=== PATIENT | male | born 1960 | race Caucasian/White ===

== ENCOUNTER 2025-01-29 02:45 | Emergency (ER) | payer SELFPAY ==
[2025-01-29] VITALS (9 sets, daily range): BP systolic 130–157; BP diastolic 79–102; BMI 29.0
--- NOTE | 2025-01-29 03:20 | EDRN ---
Pt lying on stretcher shaking his legs up and down and sometimes side to side. Pt says his last drink of alcohol was about 6 hours ago. Nausea, no vomiting. No hallucinations, cp, sob, abd pain, dizziness, weakness. Pt complains of feeling
anxious. Pt told Dr Tillman he has not had thoughts of killing himself. Pt clarifies the thoughts have crossed his mind but he has no intention of acting upon the thoughts.
--- NOTE | 2025-01-29 03:27 | ED.GENMED ---
History of Present Illness
General
Chief Complaint: Anxiety
Source: patient
Exam Limitations: none
Time Seen by Provider: 01/29/25 03:08
Nursing documentation reviewed up to this point in time: agreed with
History of Present Illness
History of Present Illness:
64-year-old male with history as noted significant for alcohol abuse presents to the emergency room complaining of anxiety�'I think I am withdrawing.' He says that his last drink was yesterday and he thinks maybe about 12 hours ago. He says he
drinks about a bottle of vodka a day. He says that over the past few hours he has had significant anxiety, tremulousness. He says he has a headache. Mild nausea. No vomiting. No abdominal pain. No chest pain. No breathing issues. He denies
any other complaints. He says that he has had occasional suicidal thoughts in the past but denies being actively suicidal and denies homicidal ideation. He denies any drug use.
Past History
Past History
ED Past Medical History: Hypercholesterolemia and Psychiatric (Alcohol abuse, anxiety and depression)
Social History
Tobacco: Smoker
Drug: None
Review of Systems
Review of Systems
All Other Systems: ROS reviewed and negative except as documented in HPI and ROS
Constitutional: Denies fever or chills
EENT: Denies sore throat or runny nose
Respiratory: Denies cough or trouble breathing
Cardiac: Denies chest pain
ABD/GI: Reports nausea; Denies abdominal pain or vomiting
: Denies flank pain
Musculoskeletal: Denies neck pain or back pain
Neurological: Reports headache; Denies dizzy
Psychiatric: Reports anxiety; Denies suicidal or hallucinations
Phy Exam
Physical Exam
Physical Exam:
General: Awake, alert; very restless in the bed and anxious appearing
Head: Normocephalic, atraumatic
Eyes: Conjunctiva normal, EOMI, pupils equal round and reactive to light bilaterally
Throat: Airway intact, slightly dry mucous membranes
Neck: Trachea midline, supple without meningismus
Lungs: Clear to auscultation bilaterally, no wheezing, rales, rhonchi
Heart: Tachycardia with regular rhythm, no murmurs, gallops, or rubs
Abd: Soft, non distended, nontender
Neuro: No gross deficits
Skin: No signs of trauma
Extremities: Warm and well-perfused
Scores
Heart Failure Risk
Heart Failure Risk Score: Not Applicable
Heart Score for Chest Pain Patients
STEMI patient?: Not applicable
Withdrawal Assessment of Alcohol
Withdrawal Assessment Completed?: Yes
Nausea and Vomiting: Mild nausea with no vomiting
Tactile Disturbances: None
Tremor: Not visible, but can be felt fingertip to fingertip
Auditory Disturbances: Not present
Paroxysmal Sweats: No sweat visible
Visual Disturbances: Very mild sensitivity
Anxiety: Moderately anxious, or guarded, so anxiety is inferred
Headache, Fullness in Head: Mild
Agitation: Moderately fidgety and restless
Orientation and clouding of sensorium: Oriented and can do serial additions
Total CIWA Score: 13
Alcohol Withdrawal Medication Recommendation: Equal to MSAS Score 5-7. Lorazepam 1mg IV or PO NOW & re-assess q2hrs
Course
Orders/Labs/Results
Orders:
Orders
01/29/25 03:17
Crisis Consult Urgent
Reason for Consult: pt screeded moderate risk suicide screen
01/29/25 03:23
Drug Screen, Urine [Urine Drug Abuse Screen] Urgent
Lorazepam [Ativan] 1 mg IV NOW STA
Thiamine Injection 100 mg IV NOW STA
01/29/25 03:24
0.9% Sodium Chloride 1000 ml [Nss] 1,000 ml IV BOLUS
01/29/25 03:32
Electrocardiogram (*1) Urgent
Reason for Study: QTc Monitoring
EKG- Treatment ONCE
01/29/25 03:42
Acetaminophen Urgent
Alcohol Urgent
Complete Blood Count/With Diff Urgent
Comprehensive Metabolic Panel Urgent
Lipase Urgent
Salicylate Urgent
01/29/25 04:00
FOLic ACID [Folvite] 1 mg 0.9% Sodium Chloride 50 ml [Nss] 50 ml IV ONCE
Abnormal Lab Results
01/29/25
03:42
WBC 13.6 H 10^3/uL
(4.8-10.8)
RBC 6.36 H 10^6/uL
(4.70-6.10)
Hgb 18.4 H g/dL
(13.0-18.0)
MPV 10.5 H fL
(7.4-10.4)
Abs Immat Gran (auto) 0.1 H 10^3/uL
(0-0.05)
Absolute Neuts (auto) 10.7 H 10^3/uL
(1.4-6.5)
Absolute Monos (auto) 0.8 H 10^3/uL
(0.1-0.6)
Neutrophils % 78.6 H %
(42.2-75.2)
Lymphocytes % 14.7 L %
(20.5-51.1)
Carbon Dioxide 18 L mmol/L
(22-30)
Glucose 120 H mg/dl
(70-99)
Salicylates < 1.0 L mg/dl
(2.0-20.0)
Acetaminophen < 10 L ug/ml
(10-30)
01/29/25 03:42
01/29/25 03:42
Vital Signs
Initial and Last Documented VS:
Initial Vital Signs
Temp Pulse Resp BP Pulse Ox
36.1 C 126 30 142/100 96
01/29/25 02:51 01/29/25 02:51 01/29/25 02:51 01/29/25 02:51 01/29/25 02:51
Last Documented Vital Signs
Temp Pulse Resp BP Pulse Ox
36.1 C 110 16 145/87 96
01/29/25 02:51 01/29/25 05:00 01/29/25 05:00 01/29/25 05:00 01/29/25 02:51
MDM/Problems Addressed
Differential Diagnosis Includes:
Alcohol withdrawal, anxiety
MDM/Problems Addressed:
64-year-old male presents for evaluation of anxiety, tremulousness�he is concerned for alcohol withdrawal. Has a history of heavy alcohol use. He says his last drink was yesterday he thinks maybe 12 hours. Hypertensive, tachycardic; physical exam
as above. Will plan to treat with IV Ativan. Fluids, thiamine/folate. Send basic screening labs and drug screen. Check alcohol level. Case discussed with crisis.
Labs reviewed: CBC appears hemoconcentrated. CMP marginal metabolic acidosis with a bicarb of 18 likely alcoholic ketoacidosis. Tylenol and salicylate levels negative, alcohol level 99. Patient feeling better after Ativan. Continue fluids.
Crisis evaluated patient and offered inpatient psychiatric care which patient actually excepted with stipulation that he only wants to go to certain dual diagnosis facilities and if he cannot be placed in his preferred facility would rather pursue
outpatient treatment. Will continue to monitor.
There is a bed available at [facility], case sent for their review. Continue to monitor. Patient is resting comfortably, says he feels much better after dose of Ativan.
Chronic conditions affecting care:
Alcohol use
*Pulse Oximetry
Patient hypoxic: no
*EKG
Interpreted by ED Provider?: Yes
Heart Rate: 103
Rate: tachycardiac
Rhythm: sinus
Goodman: normal axis
Interval: normal interval
QRS Pattern: normal QRS
Ischemia: no ischemia
*Critical Care Note
Total Time (30-74mins, 75-104mins- exclusive of procedures): Not Applicable
Data Reviewed
Source: patient and records
Patient Management
Social determinants of health affecting care: Substance abuse
ED Attending Note
-
Portions of this chart may have been created with voice recognition software.� Occasional wrong word or��sound alike� substitutions may have occurred due to the inherent limitations of voice recognition software.
Discharge Plan
Departure
Prescriptions:
No Action
Unobtainable
0
Referrals:
UNKNOWN - PT DOES,NOT KNOW [Family Provider] -
Interventions
Interventions:
*Risk Screen - Suicide Last Done: 01/29/25 03:15
*General Assessment Last Done: 01/29/25 03:15
*Neglect/Abuse Screening Last Done: 01/29/25 03:15
*ED- Fall Risk Assessment Last Done: 01/29/25 03:15
*ED COVID-19 Vaccine History Last Done: 01/29/25 03:15
ED-Psychological Assessment Last Done: 01/29/25 03:20
Discharge Date and Time
Print Language: BELARUSIAN
[2025-01-29] MEDS: NSS 1000 IV (03:43)
[2025-01-29] MEDS: THIAMINE INJECTION 100 MG IV (03:47)
--- NOTE | 2025-01-29 03:47 | EDRN ---
Per Dr Tillman, pt does NOT needs a 1:1
[2025-01-29 03:51] LABS: % Basophils 0.4 % (0-2); % Eosinophils 0.1 % (0-6); % Immature Granulocytes 0.4 % (0-0.5); % Lymphocytes 14.7 % (20.5-51.1); % Monocytes 5.8 % (1.7-9.3); % Neutrophils 78.6 % (42.2-75.2); Absolute Basophils 0.1 10^3/uL (0-0.2); Absolute Immature Granulocytes 0.1 10^3/uL (0-0.05); Absolute Monocytes 0.8 10^3/uL (0.1-0.6); Absolute Neutrophils 10.7 10^3/uL (1.4-6.5); Hemoglobin 18.4 g/dL (13.0-18.0); Mean Corp Hgb Conc. 35.4 g/dL (33.0-37.0); Mean Corpuscular Hgb 28.9 pg (27.0-31.0); Mean Corpuscular Volume 81.8 fL (80.0-94.0); Mean Platelet Volume 10.5 fL (7.4-10.4); Nucleated Red Blood Cells % 0.1 % (-); Platelet Count 307 10^3/uL (130-400); Red Blood Cell Count 6.36 10^6/uL (4.70-6.10); Red Cell Dist. Width 13.3 % (11.5-14.5); White Blood Cell Count 13.6 10^3/uL (4.8-10.8)
[2025-01-29] MEDS: ATIVAN 1 MG IV ×4 (03:51→09:36)
--- NOTE | 2025-01-29 03:53 | EDRN ---
Called pharmacy for folvite
[2025-01-29] MEDS: FOLVITE 50.2 MG IV (04:02)
[2025-01-29 04:17] LABS: ALT (SGPT) 24 U/L (0-50); AST (SGOT) 31 U/L (17-59); Acetaminophen < 10 ug/ml (10-30); Albumin 4.9 g/dl (3.5-5.0); Alcohol 99 mg/dl; Alkaline Phosphatase 84 U/L (38-126); Blood Urea Nitrogen 13 mg/dl (9-20); Calcium 9.5 mg/dl (8.4-10.2); Carbon Dioxide 18 mmol/L (22-30); Chloride 101 mmol/L (98-107); Estimated Creatinine Clearance 81 ml/min; Glucose 120 mg/dl (70-99); Lipase 132 U/L (23-300); Salicylate < 1.0 mg/dl (2.0-20.0); Sodium 140 mmol/L (135-145); Total Bilirubin 1.3 mg/dl (0.2-1.3); Total Protein 8.1 g/dl (6.3-8.2); eGFR > 60.00
--- NOTE | 2025-01-29 04:30 | EDRN ---
Pt informed this RN he ran out of alcohol to drink which caused him to become anxious. Pt requests placement at [facility]. [facility] worker told pt she will try to get him placement there but it is often hard to get placement there. Pt says he will
not go anywhere else.
== END 2025-01-29 11:59 ==
LOC: EMR 02:45
PROVIDERS: EMERGENCY PHYSICIAN Emergency Medicine
DX: F10.139 Alcohol abuse with withdrawal, unspecified (principal); F41.9 Anxiety disorder, unspecified; F17.200 Nicotine dependence, unspecified, uncomplicated; R03.0 Elevated blood-pressure reading, without diagnosis of hypertension
CPT/HCPCS: 99284; 96365; 96375 ×2; 96376; 80053; 80143; 80179; 82077; 83690; 85025; 93005

== ENCOUNTER 2025-08-13 08:31 | Emergency (ER) | payer MEDICARE, SELFPAY ==
[2025-08-13] VITALS (8 sets, daily range): BP systolic 128–141; BP diastolic 79–91; BMI 30.5
--- NOTE | 2025-08-13 09:01 | EDRN ---
Kishor from crisis currently at the pts bedside speaking with the pt
--- NOTE | 2025-08-13 09:13 | EDRN ---
the pt states to this RN and Kishor from crisis that he is withdrawing from alcohol, the pt states that last drink was 3 days ago
--- NOTE | 2025-08-13 10:02 | EDRN ---
the pt was agreeable to allowing this RN to obtain lab work
[2025-08-13 10:08] LABS: Hematocrit 45.1 % (39.0-52.0); Hemoglobin 15.7 g/dL (13.0-18.0); Mean Corp Hgb Conc. 34.8 g/dL (33.0-37.0); Mean Corpuscular Volume 87.4 fL (80.0-94.0); Platelet Count 154 10^3/uL (130-400); Red Cell Dist. Width 13.2 % (11.5-14.5)
[2025-08-13] MEDS: ATIVAN 1 MG PO ×2 (10:16→13:13)
[2025-08-13 10:27] LABS: ALT (SGPT) 74 U/L (0-50); AST (SGOT) 49 U/L (17-59); Acetaminophen < 10 ug/ml (10-30); Albumin 4.1 g/dl (3.5-5.0); Alkaline Phosphatase 62 U/L (38-126); Blood Urea Nitrogen 4 mg/dl (9-20); Calcium 8.7 mg/dl (8.4-10.2); Carbon Dioxide 29 mmol/L (22-30); Chloride 92 mmol/L (98-107); Estimated Creatinine Clearance 112 ml/min; Glucose 121 mg/dl (70-99); Magnesium 1.9 mg/dl (1.6-2.3); Salicylate < 1.0 mg/dl (2.0-20.0); Sodium 128 mmol/L (135-145); Total Protein 6.7 g/dl (6.3-8.2); eGFR > 60.00
[2025-08-13 10:33] LABS: Potassium 3.4 mmol/L (3.5-5.1)
--- NOTE | 2025-08-13 10:33 | ED.GENMED ---
History of Present Illness
<Minh Lord MD - Last Filed: 08/15/25 08:04>
General
Chief Complaint: Suicidal Ideation
Time Seen by Provider: 08/13/25 08:33
<Nilesh Gonzalez MD, Resident - Last Filed: 08/13/25 14:21>
General
Source: patient
History of Present Illness
History of Present Illness:
Patient is a 65-year-old male with PMH of anxiety and depression who presents to the [facility] ED via EMS for suicidal ideation. Patient ran out of his normal psychiatric medications of quetiapine 1 week ago and buspirone 3 days ago. Over the
last few days, patient's anxiety increased without his medications and he became suicidal, saying he 'couldn't take it anymore' and 'just did not want to wake up.' Last night, patient had a plan to take his own life by stabbing himself with a
kitchen knife, but he says he just could not make himself do it. He became scared feeling this way, which prompted him to call 911. Patient has been suicidal in the past with multiple suicide attempts, including 1 attempt by hanging. Patient
denies current SI, HI, or audiovisual hallucinations. Patient states he is a recovering alcoholic. Patient states he has avoided alcohol for few months, but he had a relapse a few days ago, when he drank a liter of vodka. Patient has been
diaphoretic and nauseous over the last few days, and he vomited this morning. He has not eaten in the last 2 days. Denies F/F/C, chest pain, shortness of breath, palpitations, tachycardia, or headache. No issues with BMs or urination. Patient
lives in a rooming house. [facility]
Past History
<Minh Lord MD - Last Filed: 08/15/25 08:04>
Past History
ED Past Medical History: Hypercholesterolemia and Psychiatric (Alcohol abuse, anxiety and depression)
Social History
Tobacco: Smoker
Drug: None
<Nilesh Gonzalez MD, Resident - Last Filed: 08/13/25 14:21>
Social History
Alcohol: Chronic alcoholic
Phy Exam
<Nilesh Gonzalez MD, Resident - Last Filed: 08/13/25 14:21>
Physical Exam
Physical Exam:
General: NAD. Easily communicative.
CV: RRR. S1, S2 noted. No M/R/G.
Pulm: CTAB. No wheezes or crackles.
GI: Soft, nontender. Nondistended.
Psych: Depressed mood. Linear thought process. No obvious audiovisual hallucinations. Seems to possess insight into his anxiety/depression.
Course
<Minh Lord MD - Last Filed: 08/15/25 08:04>
Orders/Labs/Results
Orders:
Orders
08/13/25 08:51
Crisis Consult Urgent
Reason for Consult: suicidal ideation
08/13/25 09:50
One to One Observation - Suicide/Violent [1:1 Observation - Suicide/ Violent Behavior] As Directed
08/13/25 09:52
Electrocardiogram (*1) Urgent
Reason for Study: QTc Monitoring
08/13/25 09:53
EKG- Treatment ONCE
08/13/25 09:56
Lorazepam [Ativan] 1 mg PO NOW STA
08/13/25 09:58
Acetaminophen Urgent
Alcohol Urgent
Complete Blood Count/No Diff Urgent
Comprehensive Metabolic Panel Urgent
Magnesium Urgent
Salicylate Urgent
08/13/25 11:19
0.9% Sodium Chloride 1000 ml [Nss] 1,000 ml IV BOLUS
Potassium Chloride [KCl] 40 meq PO NOW STA
08/13/25 13:04
Lorazepam [Ativan] 1 mg PO NOW STA
08/13/25 13:14
Fentanyl, Urine Urgent
Urine Drug Abuse Screen Urgent
Date Specimen was Collected: 08/13/25
Time Specimen was Collected: 09:57
08/13/25 14:24
Lorazepam [Ativan] 2 mg PO NOW STA
08/13/25 14:27
Ondansetron Injectable [Zofran] 4 mg .ROUTE .STK-MED ONE
08/13/25 14:35
Ondansetron Injectable [Zofran] 4 mg IV NOW STA
08/13/25 15:14
Basic Metabolic Panel Urgent
Abnormal Lab Results
08/13/25 08/13/25 08/13/25
09:58 13:14 15:14
MPV 11.8 H fL
(7.4-10.4)
Sodium 128 L mmol/L 132 L mmol/L
(135-145) (135-145)
Potassium 3.4 L mmol/L
(3.5-5.1)
Chloride 92 L mmol/L 96 L mmol/L
(98-107) (98-107)
BUN 4 L mg/dl 4 L mg/dl
(9-20) (9-20)
Glucose 121 H mg/dl 112 H mg/dl
(70-99) (70-99)
Calcium 8.1 L mg/dl
(8.4-10.2)
Total Bilirubin 1.6 H mg/dl
(0.2-1.3)
ALT 74 H U/L
(0-50)
Salicylates < 1.0 L mg/dl
(2.0-20.0)
Acetaminophen < 10 L ug/ml
(10-30)
U Benzodiazepines Scrn Positive H
(Negative)
08/13/25 09:58
08/13/25 15:14
Vital Signs
Initial and Last Documented VS:
Initial Vital Signs
Temp Pulse Resp BP Pulse Ox
98.1 F 91 20 135/91 100
08/13/25 08:31 08/13/25 08:31 08/13/25 08:31 08/13/25 08:31 08/13/25 08:31
Last Documented Vital Signs
Temp Pulse Resp BP Pulse Ox
97.6 F 73 20 131/85 96
08/13/25 16:00 08/13/25 16:00 08/13/25 16:00 08/13/25 16:00 08/13/25 16:00
<Nilesh Gonzalez MD, Resident - Last Filed: 08/13/25 14:21>
Orders/Labs/Results
Orders:
Orders
08/13/25 08:51
Crisis Consult Urgent
Reason for Consult: suicidal ideation
08/13/25 09:50
One to One Observation - Suicide/Violent [1:1 Observation - Suicide/ Violent Behavior] As Directed
08/13/25 09:52
Electrocardiogram (*1) Urgent
Reason for Study: QTc Monitoring
08/13/25 09:53
EKG- Treatment ONCE
08/13/25 09:56
Lorazepam [Ativan] 1 mg PO NOW STA
08/13/25 09:58
Acetaminophen Urgent
Alcohol Urgent
Complete Blood Count/No Diff Urgent
Comprehensive Metabolic Panel Urgent
Magnesium Urgent
Salicylate Urgent
08/13/25 11:19
0.9% Sodium Chloride 1000 ml [Nss] 1,000 ml IV BOLUS
Potassium Chloride [KCl] 40 meq PO NOW STA
08/13/25 13:04
Lorazepam [Ativan] 1 mg PO NOW STA
08/13/25 13:14
Fentanyl, Urine Urgent
Urine Drug Abuse Screen Urgent
Date Specimen was Collected: 08/13/25
Time Specimen was Collected: 09:57
08/13/25 14:24
Lorazepam [Ativan] 2 mg PO NOW STA
08/13/25 14:27
Ondansetron Injectable [Zofran] 4 mg .ROUTE .STK-MED ONE
08/13/25 14:35
Ondansetron Injectable [Zofran] 4 mg IV NOW STA
08/13/25 15:14
Basic Metabolic Panel Urgent
Abnormal Lab Results
08/13/25 08/13/25 08/13/25
09:58 13:14 15:14
MPV 11.8 H fL
(7.4-10.4)
Sodium 128 L mmol/L 132 L mmol/L
(135-145) (135-145)
Potassium 3.4 L mmol/L
(3.5-5.1)
Chloride 92 L mmol/L 96 L mmol/L
(98-107) (98-107)
BUN 4 L mg/dl 4 L mg/dl
(9-20) (9-20)
Glucose 121 H mg/dl 112 H mg/dl
(70-99) (70-99)
Calcium 8.1 L mg/dl
(8.4-10.2)
Total Bilirubin 1.6 H mg/dl
(0.2-1.3)
ALT 74 H U/L
(0-50)
Salicylates < 1.0 L mg/dl
(2.0-20.0)
Acetaminophen < 10 L ug/ml
(10-30)
U Benzodiazepines Scrn Positive H
(Negative)
08/13/25 09:58
08/13/25 15:14
Vital Signs
Initial and Last Documented VS:
Initial Vital Signs
Temp Pulse Resp BP Pulse Ox
98.1 F 91 20 135/91 100
08/13/25 08:31 08/13/25 08:31 08/13/25 08:31 08/13/25 08:31 08/13/25 08:31
Last Documented Vital Signs
Temp Pulse Resp BP Pulse Ox
97.6 F 73 20 131/85 96
08/13/25 16:00 08/13/25 16:00 08/13/25 16:00 08/13/25 16:00 08/13/25 16:00
<Nilesh Gonzalez MD, Resident - Last Filed: 08/13/25 14:21>
MDM/Problems Addressed
Differential Diagnosis Includes:
Suicidal ideation
Anxiety
Depression
Alcohol withdrawal
Delirium tremens
Electrolyte abnormality
Medication noncompliance
MDM/Problems Addressed:
Assessment: Patient is a 65-year-old male with PMH of anxiety and depression who presents to the [facility] ED for suicidal ideation with a plan to stab himself since last night, recent noncompliance with psychiatric medications, and drinking of 1 L
of vodka 3 days ago in the setting of chronic alcoholism. AFVSS. Patient denies current SI, HI, or A/V hallucinations. Concern for acute worsening of anxiety due to noncompliance, alcohol withdrawal, and suicidal ideation.
Plan:
#Suicidal ideation
#Alcohol withdrawal
#Anxiety
Labs: CBC, CMP, UDS, EtOH, acetaminophen, salicylate
Ativan 1 mg
IV fluids
Repeat BMP in 1�2 hours following IVF's
Psychiatry consult to help with evaluation and placement
<Minh Lord MD - Last Filed: 08/15/25 08:04>
*Pulse Oximetry
SaO2: 100
Oxygen Mode of Delivery: Room air
*EKG
Interpreted by ED Provider?: Yes
EKG Intrepretation Date: 08/13/25
Heart Rate: 66
Rate: normal
Rhythm: sinus
Homer: normal axis
Interval: normal interval
<Nilesh Gonzalez MD, Resident - Last Filed: 08/13/25 14:21>
*Pulse Oximetry
Patient hypoxic: no
*Critical Care Note
Total Time (30-74mins, 75-104mins- exclusive of procedures): Not Applicable
ED Attending Note
&;Minh Lord MD - Last Filed: 08/15/25 08:04>
ED Attending Note
Patient seen and examined by attending physician: Yes
ED Attending Note:
Patient with history of anxiety, depression, and chronic alcohol use (last alcohol intake 3 days ago), presents to ED for evaluation secondary to continual suicidal thoughts over the past 2 days. Last night, patient reports having had thoughts of
wanting to stab himself with a kitchen knife, which he did not do. Patient has had previous suicidal attempts. Otherwise, patient is complaining of mild withdrawal symptoms, which he has had in the past, including 1 vomiting episode and feeling
anxious. Denies fever or chills. Denies chest pain. Denies shortness of breath. Denies diarrhea.
Physical Exam
General: no apparent distress, not acutely ill. afebrile
Head: nc/at. eomi
Neck: supple. no meningeal signs.
Heart: s1/s2 regular rate and rhythm
Lungs: no acute respiratory distress. clear bilaterally
Abdomen: normal bowel sounds. not tender.
Neuro: alert and oriented x 3. no focal neurological deficits
Skin: no rash
Psychiatric: well kept. interactive and cooperative, but mildly anxious appearing
Extremities: no edema. no calf tenderness.
Blood work reviewed, significant for mild hyponatremia, likely prerenal, due to decreased oral intake resulting in mild dehydration. As such, patient will be hydrated with IV fluids and BMP to be repeated afterwards. As long as sodium is improving
and patient is able to tolerate oral fluid, patient will be cleared medically for inpatient psychiatric evaluation and treatment.
Patient evaluated by [facility] special delivery worker.
-
Portions of this chart may have been created with voice recognition software.� Occasional wrong word or��sound alike� substitutions may have occurred due to the inherent limitations of voice recognition software.
Discharge Plan
Departure
Patient Disposition: Home (Routine Discharge)
Date of Disposition: 08/13/25
Time of Disposition: 15:32
Patient with high blood pressure during this ER visit?: No
Discharge Problem:
alcohol use disorder, Suicidal thoughts
Prescriptions:
No Action
buspirone 5 mg tablet
5 mg PO TID
melatonin 3 mg tablet
3 mg PO HS
quetiapine 100 mg tablet
100 mg PO TID
propranolol 10 mg tablet
10 mg PO TID
trazodone 100 mg tablet
300 mg PO HS
ropinirole 0.5 mg tablet
0.5 mg PO HS
albuterol sulfate 90 mcg/actuation HFA aerosol inhaler
2 puff INHALATION Q4HPRN PRN (Reason: shortness of breath)
fluoxetine 20 mg capsule
40 mg PO DAILY
buspirone 15 mg tablet
15 mg PO TID
Referrals:
NONE,* [Family Provider, Internal Medicine]
Interventions
Interventions:
*Risk Screen - Suicide Last Done: 08/13/25 08:31
*General Assessment Last Done: 08/13/25 08:31
*Neglect/Abuse Screening Last Done: 08/13/25 08:31
*ED- Fall Risk Assessment Last Done: 08/13/25 08:31
*ED COVID-19 Vaccine History Last Done: 08/13/25 08:31
*ED Influenza Vaccine History Last Done: 08/13/25 08:31
*Nursing Disposition Last Done: 08/13/25 19:56
ED-Psychological Assessment Last Done: 08/13/25 08:31
Discharge Date and Time
Discharge Date/Time: 08/13/25 19:57
Print Language: VIETNAMESE
[2025-08-13] MEDS: KCL 40 MEQ PO (11:28)
[2025-08-13] MEDS: NSS 1000 IV (11:28)
--- NOTE | 2025-08-13 13:20 | EDRN ---
per provider, a second dose of 1mg ativan PO was administered, the pt was also able to provide a urine sample that was sent to the lab
--- NOTE | 2025-08-13 14:09 | EDRN ---
Kishor from crisis is at the pts bedside speaking with the pt currently
[2025-08-13] MEDS: ZOFRAN 4 MG IV (14:36)
[2025-08-13] MEDS: ATIVAN 2 MG PO (14:36)
[2025-08-13 15:52] LABS: Blood Urea Nitrogen 4 mg/dl (9-20); Calcium 8.1 mg/dl (8.4-10.2); Carbon Dioxide 29 mmol/L (22-30); Chloride 96 mmol/L (98-107); Estimated Creatinine Clearance > 125 ml/min; Glucose 112 mg/dl (70-99); Potassium 3.6 mmol/L (3.5-5.1); Sodium 132 mmol/L (135-145); eGFR > 60.00
--- NOTE | 2025-08-13 16:05 | EDRN ---
the pt was medically cleared by oscar Oviedo from crisis Acute Care will arrived at 1900 to transport the pt to [place]
--- NOTE | 2025-08-13 16:53 | EDRN ---
pt transferred to Crisis Room #1
--- NOTE | 2025-08-13 17:04 | EDRN ---
MSAS complete per Dr. Barraza
== END 2025-08-13 19:57 | disposition home or self-care (01) ==
LOC: EMR 08:31
PROVIDERS: EMERGENCY PHYSICIAN Emergency Medicine
DX: F10.239 Alcohol dependence with withdrawal, unspecified (principal); R45.851 Suicidal ideations; X78.1XXA Intentional self-harm by knife, initial encounter; Y90.9 Presence of alcohol in blood, level not specified; E78.00 Pure hypercholesterolemia, unspecified; F17.200 Nicotine dependence, unspecified, uncomplicated; F19.10 Other psychoactive substance abuse, uncomplicated
CPT/HCPCS: 99283; 96360; 80048; 80053; 80143; 80179; 80306; 80307; 82077; 83735; 85027; 93005